=== PATIENT | female | born 1960 | race Caucasian/White ===

== ENCOUNTER 2019-04-10 08:27 | Day surgery (SDC) | payer OTHER ==
[~2019-04-10 08:27] MED LIST: ALPR.25; DIPH25; LACT10SY; LASIX; PENT400ER; POTASSIUM; PROCHLORPERAZINE; PROPRANOLOL; SPIRONOLACTONE; [UNRECOGNIZED DRUG - OTHER]
== END 2019-04-10 23:10 | disposition home or self-care (01) ==
LOC: MOI US 08:27
DX: N64.89 Other specified disorders of breast (principal)
CPT/HCPCS: 19083; 77065; 88305; A4648

== ENCOUNTER 2020-06-15 09:16 | Emergency (ER) | payer OTHER ==
[~2020-06-15] VITALS: Ht 170.2 cm; Wt 108.9 kg
[2020-06-15] MEDS ORDERED: Prinivil10 MG PO (09:31)
[2020-06-15] MEDS ORDERED: METO25ER PO (09:31)
[2020-06-15] MEDS ORDERED: HYDCHL25 PO (09:31)
[2020-06-15 10:16] LABS: BASOPHILS ABSOLUTE AUTO 0.04 K/mm3 (0.00-0.23); BASOPHILS PERCENT AUTO 1 % (0-2); EOSINOPHILS ABSOLUTE AUTO 0.02 K/mm3 (0.00-0.68); EOSINOPHILS PERCENT AUTO 1 % (0-6); Hematocrit 38.5 % (33.0-51.0); Hemoglobin 13.2 g/dL (11.5-16.0); IMMATURE GRAN ABSOLUTE AUTO 0.01 K/mm3 (0.00-0.10); IMMATURE GRAN PERCENT AUTO 0 % (0-1); LYMPHOCYTES ABSOLUTE AUTO 1.17 K/mm3 (0.84-5.20); LYMPHOCYTES PERCENT AUTO 31 % (21-46); MONOCYTES ABSOLUTE AUTO 0.37 K/mm3 (0.16-1.47); MONOCYTES PERCENT AUTO 10 % (4-13); Mean Corpuscular HGB 35.5 pg (26.0-34.0); Mean Corpuscular HGB Conc 34.3 g/dL (31.5-36.5); Mean Corpuscular Volume 104 fL (80-100); Mean Platelet Volume 10.1 fL (9.1-12.4); NEUTROPHILS ABSOLUTE AUTO 2.18 K/mm3 (1.96-9.15); NEUTROPHILS PERCENT AUTO 57 % (41-73); Platelet Count 168 K/mm3 (150-400); RDW Coefficient Variation 12.6 % (11.7-14.2); Red Blood Cell Count 3.72 M/mm3 (3.80-5.20); White Blood Cell Count 3.79 K/mm3 (4.00-11.30)
[2020-06-15 10:25] LABS: Alanine Aminotransfer (ALT/SGP 48 U/L (12-78); Albumin/Globulin Ratio 0.7 (0.8-1.8); Alk Phos 189 U/L (50-136); Anion Gap 9 mmol/L (6-16); Aspartate Aminotrans (AST/SGOT 42 U/L (12-37); Bilirubin, Total 1.6 mg/dL (0.1-1.0); Blood Urea Nitrogen 7 mg/dL (8-24); Bun/Creatinine Ratio 11.9 (12.0-20.0); CO2, Blood 24 mmol/L (21-32); Calcium, Blood 9.3 mg/dL (8.5-10.1); Chloride, Blood 99 mmol/L (98-108); Creatinine, Blood 0.59 mg/dL (0.40-1.00); Globulin, Blood 4.3 g/dL (2.2-4.0); Glomerular Filtration Rate >60 (60-); Glucose, Blood 103 mg/dL (70-99); Potassium, Blood 3.1 mmol/L (3.5-5.5); Sodium, Blood 132 mmol/L (136-145); Total Protein, Blood 7.3 g/dL (6.4-8.2)
[2020-06-15 10:59] LABS: Source, Urine Clean Catch
[2020-06-15 11:02] LABS: Appearance, Urine Clear (Clear); Bilirubin, Urine Neg (Neg); Blood, Urine Neg (Neg); Color, Urine Yellow (P-Yellow); Glucose Qualitative, Urine Neg (Neg); Ketones, Urine Neg (Neg); Leukocyte Esterase, Urine Neg (Neg); Nitrite, Urine Neg (Neg); Protein, Urine Neg (Neg); Specific Gravity, Urine 1.015 (1.003-1.022); Urobilinogen, Urine 1+ (Normal)
== END 2020-06-15 13:15 | disposition home or self-care (01) ==
LOC: ER 09:16
PROVIDERS: Physician Assistant
DX: K80.80 Other cholelithiasis without obstruction (principal); F17.200 Nicotine dependence, unspecified, uncomplicated; Z79.899 Other long term (current) drug therapy
CPT/HCPCS: 36415; 71046; 71260; 76705; 80053; 81003; 85025; 85379; 96374; 99284-25; J1885; Q9967

== ENCOUNTER 2022-05-11 10:06 | Inpatient (IN) | payer OTHER ==
[~2022-05-11] VITALS: Ht 167.6 cm; Wt 100.7 kg
[~2022-05-11 10:06] MED LIST changes: +HYDCHL25 PO; +METO25ER PO; +Prinivil10 MG PO
[2022-05-11 10:54] LABS: Source, Urine Clean Catch
[2022-05-11 11:02] LABS: Appearance, Urine Clear (Clear); Bilirubin, Urine Neg (Neg); Blood, Urine Neg (Neg); Color, Urine Yellow (P-Yellow); Glucose Qualitative, Urine Neg (Neg); Ketones, Urine Neg (Neg); Leukocyte Esterase, Urine Neg (Neg); Nitrite, Urine Neg (Neg); Protein, Urine Neg (Neg); Urobilinogen, Urine NORM (Normal)
[2022-05-11 11:19] LABS: Magnesium, Blood 1.7 mg/dL (1.6-2.4)
[2022-05-11 11:20] LABS: Albumin, Blood 3.1 g/dL (3.4-5.0); Albumin/Globulin Ratio 0.7 (0.8-1.8); Bilirubin, Total 2.5 mg/dL (0.1-1.0); Calcium, Blood 9.2 mg/dL (8.5-10.1); Creatinine, Blood 0.57 mg/dL (0.40-1.00); Globulin, Blood 4.3 g/dL (2.2-4.0); Potassium, Blood 3.1 mmol/L (3.5-5.5); Total Protein, Blood 7.4 g/dL (6.4-8.2)
[2022-05-11 12:08] LABS: BASOPHILS ABSOLUTE AUTO 0.05 K/mm3 (0.00-0.23); BASOPHILS PERCENT AUTO 1 % (0-2); EOSINOPHILS ABSOLUTE AUTO 0.04 K/mm3 (0.00-0.68); EOSINOPHILS PERCENT AUTO 1 % (0-6); Hematocrit 35.3 % (33.0-51.0); Hemoglobin 13.2 g/dL (11.5-16.0); IMMATURE GRAN ABSOLUTE AUTO 0.02 K/mm3 (0.00-0.10); IMMATURE GRAN PERCENT AUTO 0 % (0-1); LYMPHOCYTES ABSOLUTE AUTO 1.25 K/mm3 (0.84-5.20); LYMPHOCYTES PERCENT AUTO 23 % (21-46); MONOCYTES ABSOLUTE AUTO 0.48 K/mm3 (0.16-1.47); MONOCYTES PERCENT AUTO 9 % (4-13); Mean Corpuscular HGB 36.3 pg (26.0-34.0); Mean Corpuscular HGB Conc 37.4 g/dL (31.5-36.5); Mean Corpuscular Volume 97 fL (80-100); NEUTROPHILS PERCENT AUTO 66 % (41-73); RDW Coefficient Variation 12.9 % (11.7-14.2); RDW Standard Deviation 46.3 fL (35.1-46.3); Red Blood Cell Count 3.64 M/mm3 (3.80-5.20); White Blood Cell Count 5.44 K/mm3 (4.00-11.30)
[2022-05-11 12:14] LABS: International Normalized Ratio 1.11; Prothrombin Time Results 11.6 Sec (9.7-11.5)
[2022-05-11 12:27] LABS: Mean Platelet Volume 10.2 fL (9.1-12.4)
[2022-05-11 12:29] LABS: Platelet Count 146 K/mm3 (150-400)
[2022-05-11 17:24] LABS: Hematocrit 35.5 % (33.0-51.0); Hemoglobin 13.1 g/dL (11.5-16.0)
--- NOTE | 2022-05-11 17:56 | NUR ---
ASSUMPTION OF CARE/ SHIFT SUMMARY PT ARRIVED TO ICU FROM ER, TRANSFERRED TO ICU BED VIA SBA, PT STABLE ON HER FEET. ALERT AND ORIENTED, FOLLOWING COMMANDS. MILDLY ANXIOUS, ADMITS TO BASELINE ANXIETY THAT SHE USED TO TAKE XANAX FOR BUT NOW TREATS WITH ALCOHOL. PT DRINKS 4-8 LARGE BEERS A DAY, ADMITS TO HAVING 2 BEERS THIS MORNING, STATES "IT HELPS WITH MY NAUSEA". CIWA OF 8, MEDICATED PT WITH 25MG LIBRIUM. 150ML/HR OF NS INFUSING ALONG WITH MAGNESIUM. BP WNL. 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 PT AMBULATING WITHOUT DIFFICULTY TO BEDSIDE COMMODE. TOLERATING PO INTAKE. MAIN COMPLAINT FROM PT IS CRAMPING IN L FOOT AND MILD ANXIETY.
[2022-05-11 21:34] LABS: Bun/Creatinine Ratio 10.1 (12.0-20.0); Creatinine, Blood 0.79 mg/dL (0.40-1.00); Potassium, Blood 3.8 mmol/L (3.5-5.5)
--- NOTE | 2022-05-11 22:04 | NUR ---
ASSUMPTION OF CARE/ASSESSMENT: ASSUMED CARE OF PT AT 1930, REPORT RECIEVED FROM VANDANA DE LEON. PT IS A&O AND USES CALL LIGHT APPROPRIATELY. LUNG SOUNDS ARE CLEAR, SPO2 96<, RR 16-20 AND ON RA. 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 N/V SUBSIDED FROM EARLIER TODAY, AND PT HAS BEEN ABLE TO EAT/DRINK. HYPERACTIVE BS IN ALL QUADRANTS, AND NO C/O ABD PAIN. PT USING TOILET IN ROOM WITH SBA; URINE IS CAROL AND CLEAR. NS GTT @ 150 MLS. PT IS AMBULATING WITH SBA, GAIT IS STEADY. WILL CONTINUE TO MONITOR.
[2022-05-12 01:11] LABS: Hematocrit 31.7 % (33.0-51.0); Hemoglobin 11.7 g/dL (11.5-16.0); Mean Corpuscular HGB 36.4 pg (26.0-34.0); Mean Corpuscular HGB Conc 36.9 g/dL (31.5-36.5); Mean Corpuscular Volume 99 fL (80-100); Mean Platelet Volume 10.1 fL (9.1-12.4); Platelet Count 129 K/mm3 (150-400); RDW Standard Deviation 46.9 fL (35.1-46.3); Red Blood Cell Count 3.21 M/mm3 (3.80-5.20); White Blood Cell Count 5.24 K/mm3 (4.00-11.30)
[2022-05-12 01:31] LABS: Albumin, Blood 2.8 g/dL (3.4-5.0); Albumin/Globulin Ratio 0.8 (0.8-1.8); Bilirubin, Total 2.6 mg/dL (0.1-1.0); Bun/Creatinine Ratio 12.4 (12.0-20.0); Calcium, Blood 8.4 mg/dL (8.5-10.1); Creatinine, Blood 0.72 mg/dL (0.40-1.00); Globulin, Blood 3.5 g/dL (2.2-4.0); Magnesium, Blood 1.9 mg/dL (1.6-2.4); Potassium, Blood 3.5 mmol/L (3.5-5.5); Total Protein, Blood 6.3 g/dL (6.4-8.2)
--- NOTE | 2022-05-12 03:42 | NUR ---
ASSUMPTION OF CARE REPORT TAKED FROM CYNTHIA DE LEON. CARE OF PT ASSUMED BY MYSELF
--- NOTE | 2022-05-12 05:47 | NUR ---
SHIFT SUMMERY PT IS ALERT AND ORIENTED W/PERIODS OF AGITATION, ANXIETY (SEE CIWA). PT WAS MEDICATED APPROPRIATE PER MD ORDERS. HER VS HAVE BEEN WNL THROUGHOUT THE NIGHT. SHE IS ON ROOM AIR. SHE HAS BEEN UP TO THE BEDSIDE COMMODE AND TOLERATED ACTIVITY WELL. SHE HAS HAD NO ACUTE DISTRESS OVERNIGHT.
[2022-05-12 07:59] LABS: Bun/Creatinine Ratio 11.5 (12.0-20.0); Calcium, Blood 8.4 mg/dL (8.5-10.1); Creatinine, Blood 0.78 mg/dL (0.40-1.00); Potassium, Blood 3.4 mmol/L (3.5-5.5)
--- NOTE | 2022-05-12 10:11 | NUR ---
PT A/O X4 THIS AM. UP TO CHAIR INDEP, STEADY ON FEET. SEE CIWA DOCUMENTATION. STATUS CHANGED TO PCU. IVF STOPPED DUE TO SODIUM CORRECTING. NO SIGN OF DISTRESS.
--- NOTE | 2022-05-12 17:38 | NUR ---
SUMMARY PT A/O X4 TODAY. NO SIGNS OF WITHDRAWL. PT UP IN ROOM INDEP. SODIUM LEVEL STILL 125, MD WANTS IT AT LEAST 130 BEFORE SHE CAN GO HOME. EATING MEALS. CHANGED TO MEDICAL STATUS. NO SIGN OF DISTRESS.
--- NOTE | 2022-05-12 19:00 | NUR ---
ASSUMED CARE OF PT. SHE IS RESTING IN BED WITH CALL LIGHT NEAR, NO C/O PAIN, IS INDEPENDENT IN ROOM AND ALERT AND ORIENTED. SHE DOES HAVE SONIA ANXIETY. PLAN IS TO DC HOME TOMORROW IF SODIUM LEVEL IS >130. WILL CONTINUE TO MONITOR.
--- NOTE | 2022-05-12 23:55 | NUR ---
PT CALLED THIS RN INTO ROOM AND C/O PAIN TO IV SITE. NEW IV THAT WAS PLACED AN HOUR EARLIER HAD ALREADY INFILTRATED. PT STATED THAT SHE WAS HESITANT FOR US TO PLACE ANOTHER ONE. INFORMED DR. SALES. SEE ORDERS
[2022-05-13 06:04] LABS: BASOPHILS ABSOLUTE AUTO 0.04 K/mm3 (0.00-0.23); EOSINOPHILS ABSOLUTE AUTO 0.06 K/mm3 (0.00-0.68); IMMATURE GRAN ABSOLUTE AUTO 0.01 K/mm3 (0.00-0.10); LYMPHOCYTES ABSOLUTE AUTO 0.92 K/mm3 (0.84-5.20); LYMPHOCYTES PERCENT AUTO 24 % (21-46); MONOCYTES ABSOLUTE AUTO 0.34 K/mm3 (0.16-1.47); MONOCYTES PERCENT AUTO 9 % (4-13); NEUTROPHILS ABSOLUTE AUTO 2.45 K/mm3 (1.96-9.15); NEUTROPHILS PERCENT AUTO 64 % (41-73)
[2022-05-13 06:06] LABS: BASOPHILS PERCENT AUTO 1 % (0-2); EOSINOPHILS PERCENT AUTO 2 % (0-6); Hematocrit 29.8 % (33.0-51.0); Hemoglobin 10.7 g/dL (11.5-16.0); IMMATURE GRAN PERCENT AUTO 0 % (0-1); Mean Corpuscular HGB 37.3 pg (26.0-34.0); Mean Corpuscular HGB Conc 35.9 g/dL (31.5-36.5); Mean Platelet Volume 10.6 fL (9.1-12.4); Platelet Count 105 K/mm3 (150-400); RDW Coefficient Variation 13.8 % (11.7-14.2); RDW Standard Deviation 52.7 fL (35.1-46.3); Red Blood Cell Count 2.87 M/mm3 (3.80-5.20); White Blood Cell Count 3.64 K/mm3 (4.00-11.30)
[2022-05-13 06:07] LABS: Mean Corpuscular Volume 104 fL (80-100)
[2022-05-13 06:14] LABS: Bun/Creatinine Ratio 15.3 (12.0-20.0); Calcium, Blood 8.6 mg/dL (8.5-10.1); Creatinine, Blood 0.72 mg/dL (0.40-1.00); Potassium, Blood 3.8 mmol/L (3.5-5.5)
--- NOTE | 2022-05-13 06:21 | NUR ---
Shift summary: Pt is A&OX4, independent in room. Earlier in the night 2 IV's had infiltrated when NS was infusing at 150ml/hr. A new IV was then placed in her forearm using the U/S and about an hour later that IV infiltrated as well. Her RAJESH is swollen and her RFA/RAC is swollen as well. Per pt she was told that she would be going home today and would not like another IV if this keeps happening because she doesn't want to be swollen at home. Informed MD and salt tablets were added. Despite this issue, pt had an uneventful night and really wanting to go home today.
--- NOTE | 2022-05-13 11:32 | NUR ---
DISCHARGED HOME AT 1045 ASSUMED CARE OF PT AT 0715. SHE IS A/O X4, AFIB (BASELINE), BP WNL. NA 133, BEING CHECKED EVERY 2 HOURS. ATE 100% BREAKFAST, NO N/V. VOIDS IN BSC, IS AMBULATING IN ROOM INDEPENDENTLY. NO IV ACCESS (3 IV'S INFILTRATED ON LAST SHIFT). PT IS EAGER TO GO HOME. DISCUSSED WITH DR. DEL ROSARIO AND D/C ORDERS RECIEVED. REVIEWED D/C INSTRUCTIONS WITH PT INCLUDING DIETARY SODIUM INTAKE AND FLUID RESTRICTION UNTIL F/U WITH [facility] PROVID[facility]. PT AGREES TO CALL TO SCHEDULE APPOINTMENT WITHIN 5 DAYS. PT REQUESTS TO BE WHEELED OUT TO [facility] TO AWAIT HER RIDE HOME. PT TRANSPORTED OUT BY PCT VIA W/C AT 1045. RESIDENT BUYER NOTIFIED OF D/C.
== END 2022-05-13 10:45 | disposition home or self-care (01) | DRG 897 ==
LOC: ER 10:06 → ERHOLD 14:20 → ICUE 14:20
PROVIDERS: Emergency Medicine; Family Medicine; Nurse Practitioner Acute Care; Physician Assistant; Student in an Organized Health Care Education/Training Program; ADMIT Internal Medicine
DX: F10.239 Alcohol dependence with withdrawal, unspecified (principal); E87.1 Hypo-osmolality and hyponatremia; D61.818 Other pancytopenia; I85.10 Secondary esophageal varices without bleeding; E87.6 Hypokalemia; K70.30 Alcoholic cirrhosis of liver without ascites; I10 Essential (primary) hypertension; F41.9 Anxiety disorder, unspecified; K80.20 Calculus of gallbladder without cholecystitis without obstruction; N20.0 Calculus of kidney; T50.2X5A Adverse effect of carbonic-anhydrase inhibitors, benzothiadiazides and other diuretics, initial encounter; E86.1 Hypovolemia; F12.10 Cannabis abuse, uncomplicated; F17.210 Nicotine dependence, cigarettes, uncomplicated; Z96.89 Presence of other specified functional implants; Z79.899 Other long term (current) drug therapy; Z98.890 Other specified postprocedural states; Z79.811 Long term (current) use of aromatase inhibitors
CPT/HCPCS: 36415; 76705; 80048; 80053; 81003; 82140; 82533; 83690; 83735; 83880; 83930; 83935; 84132; 84295; 84300; 84443; 85014; 85018; 85025; 85027; 85610; 86850; 86870; 86900; 86901; 86905; 93005; 93010; 96374; 96375; 99285-25; A9270; C9113; G0480; J1644; J2405; J3475; J3480; J7030

== ENCOUNTER 2022-08-17 17:45 | Emergency (ER) | payer OTHER ==
[~2022-08-17] VITALS: Ht 170.2 cm; Wt 102.5 kg
[2022-08-17] MEDS ORDERED: PRADAXA PO (19:24)
[2022-08-17] MEDS ORDERED: BUSP10 PO (19:24)
[2022-08-17] MEDS ORDERED: Ativan1 MG PO (21:41)
[2022-08-17 22:29] LABS: BASOPHILS ABSOLUTE AUTO 0.05 K/mm3 (0.00-0.23); BASOPHILS PERCENT AUTO 1 % (0-2); EOSINOPHILS ABSOLUTE AUTO 0.03 K/mm3 (0.00-0.68); EOSINOPHILS PERCENT AUTO 1 % (0-6); Hematocrit 39.1 % (33.0-51.0); Hemoglobin 13.6 g/dL (11.5-16.0); IMMATURE GRAN ABSOLUTE AUTO 0.01 K/mm3 (0.00-0.10); IMMATURE GRAN PERCENT AUTO 0 % (0-1); LYMPHOCYTES ABSOLUTE AUTO 1.61 K/mm3 (0.84-5.20); LYMPHOCYTES PERCENT AUTO 28 % (21-46); MONOCYTES ABSOLUTE AUTO 0.42 K/mm3 (0.16-1.47); MONOCYTES PERCENT AUTO 7 % (4-13); Mean Corpuscular HGB Conc 34.8 g/dL (31.5-36.5); Mean Corpuscular Volume 98 fL (80-100); Mean Platelet Volume 10.9 fL (9.1-12.4); NEUTROPHILS ABSOLUTE AUTO 3.56 K/mm3 (1.96-9.15); NEUTROPHILS PERCENT AUTO 63 % (41-73); Platelet Count 124 K/mm3 (150-400); RDW Coefficient Variation 14.6 % (11.7-14.2); RDW Standard Deviation 52.9 fL (35.1-46.3); White Blood Cell Count 5.68 K/mm3 (4.00-11.30)
[2022-08-17 22:30] LABS: Albumin, Blood 3.2 g/dL (3.4-5.0); Albumin/Globulin Ratio 0.8 (0.8-1.8); Bilirubin, Total 2.1 mg/dL (0.1-1.0); Bun/Creatinine Ratio 10.3 (12.0-20.0); Calcium, Blood 8.9 mg/dL (8.5-10.1); Creatinine, Blood 0.68 mg/dL (0.40-1.00); Globulin, Blood 3.9 g/dL (2.2-4.0); Potassium, Blood 3.4 mmol/L (3.5-5.5); Total Protein, Blood 7.1 g/dL (6.4-8.2)
== END 2022-08-17 21:50 | disposition home or self-care (01) ==
LOC: ER 17:45
PROVIDERS: Student in an Organized Health Care Education/Training Program
DX: F41.9 Anxiety disorder, unspecified (principal); F10.939 Alcohol use, unspecified with withdrawal, unspecified; I48.91 Unspecified atrial fibrillation; I10 Essential (primary) hypertension; F17.200 Nicotine dependence, unspecified, uncomplicated; Z79.899 Other long term (current) drug therapy
CPT/HCPCS: 71046; 80053; 84484; 85025; 93005; 93010; 96374; 99285-25

== ENCOUNTER 2022-10-06 14:15 | Emergency (ER) | payer OTHER ==
[~2022-10-06] VITALS: Ht 167.6 cm; Wt 101.2 kg
[~2022-10-06 14:15] MED LIST changes: +Ativan1 MG PO; +BUSP10 PO; +DABI150C PO
[2022-10-06] MEDS ORDERED: C COMPLEX1000 M1 PO (14:28)
[2022-10-06] MEDS ORDERED: HYDCHL12.5 PO (14:29)
[2022-10-06 15:02] LABS: BASOPHILS ABSOLUTE AUTO 0.07 K/mm3 (0.00-0.23); BASOPHILS PERCENT AUTO 1 % (0-2); EOSINOPHILS ABSOLUTE AUTO 0.04 K/mm3 (0.00-0.68); EOSINOPHILS PERCENT AUTO 1 % (0-6); Hematocrit 38.7 % (33.0-51.0); Hemoglobin 13.3 g/dL (11.5-16.0); IMMATURE GRAN ABSOLUTE AUTO 0.02 K/mm3 (0.00-0.10); IMMATURE GRAN PERCENT AUTO 0 % (0-1); LYMPHOCYTES ABSOLUTE AUTO 1.56 K/mm3 (0.84-5.20); LYMPHOCYTES PERCENT AUTO 26 % (21-46); MONOCYTES ABSOLUTE AUTO 0.51 K/mm3 (0.16-1.47); MONOCYTES PERCENT AUTO 9 % (4-13); Mean Corpuscular HGB 33.4 pg (26.0-34.0); Mean Corpuscular HGB Conc 34.4 g/dL (31.5-36.5); Mean Corpuscular Volume 97 fL (80-100); NEUTROPHILS PERCENT AUTO 63 % (41-73); Platelet Count 128 K/mm3 (150-400); RDW Coefficient Variation 13.4 % (11.7-14.2); RDW Standard Deviation 47.9 fL (35.1-46.3); Red Blood Cell Count 3.98 M/mm3 (3.80-5.20)
[2022-10-06 15:22] LABS: Albumin, Blood 3.1 g/dL (3.4-5.0); Albumin/Globulin Ratio 0.8 (0.8-1.8); Bun/Creatinine Ratio 14.1 (12.0-20.0); Calcium, Blood 8.9 mg/dL (8.5-10.1); Creatinine, Blood 0.78 mg/dL (0.40-1.00); Globulin, Blood 3.9 g/dL (2.2-4.0); Potassium, Blood 3.4 mmol/L (3.5-5.5)
[2022-10-06 16:30] VITALS: BP 142/97
== END 2022-10-06 16:39 | disposition home or self-care (01) ==
LOC: ER 14:15
PROVIDERS: Emergency Medicine
DX: I48.91 Unspecified atrial fibrillation (principal); S83.91XA Sprain of unspecified site of right knee, initial encounter; I10 Essential (primary) hypertension; F17.200 Nicotine dependence, unspecified, uncomplicated; X58.XXXA Exposure to other specified factors, initial encounter
CPT/HCPCS: 73562-RT; 80053; 84484; 85025; 93005; 93010; A9270

== ENCOUNTER 2024-10-16 19:02 | Observation (INO) | payer OTHER ==
[~2024-10-16] VITALS: Ht 167.6 cm; Wt 105.0 kg
[~2024-10-16 19:02] MED LIST changes: +C COMPLEX1000 M1 PO; +HYDCHL12.5 PO; +Toprol Xl25 MG PO
[2024-10-16 20:04] LABS: BASOPHILS ABSOLUTE AUTO 0.04 K/mm3 (0.00-0.23); BASOPHILS PERCENT AUTO 1 % (0-2); EOSINOPHILS ABSOLUTE AUTO 0.02 K/mm3 (0.00-0.68); EOSINOPHILS PERCENT AUTO 0 % (0-6); Hematocrit 36.7 % (33.0-51.0); Hemoglobin 13.2 g/dL (11.5-16.0); IMMATURE GRAN ABSOLUTE AUTO 0.01 K/mm3 (0.00-0.10); IMMATURE GRAN PERCENT AUTO 0 % (0-1); LYMPHOCYTES ABSOLUTE AUTO 1.31 K/mm3 (0.84-5.20); LYMPHOCYTES PERCENT AUTO 22 % (21-46); MONOCYTES ABSOLUTE AUTO 0.51 K/mm3 (0.16-1.47); MONOCYTES PERCENT AUTO 8 % (4-13); Mean Corpuscular HGB 33.1 pg (26.0-34.0); Mean Corpuscular Volume 92 fL (80-100); Mean Platelet Volume 9.9 fL (9.1-12.4); NEUTROPHILS ABSOLUTE AUTO 4.15 K/mm3 (1.96-9.15); NEUTROPHILS PERCENT AUTO 69 % (41-73); Platelet Count 164 K/mm3 (150-400); RDW Coefficient Variation 15.4 % (11.7-14.2); RDW Standard Deviation 51.4 fL (35.1-46.3); Red Blood Cell Count 3.99 M/mm3 (3.80-5.20); White Blood Cell Count 6.04 K/mm3 (4.00-11.30)
[2024-10-16] MEDS ORDERED: NS 1,000 ML IV SCH ×2 (20:30→21:20)
[2024-10-16 20:32] LABS: Source, Urine Clean Catch
[2024-10-16 20:35] LABS: Albumin, Blood 3.2 g/dL (3.4-5.0); Albumin/Globulin Ratio 0.8 (0.8-1.8); Bilirubin, Total 1.4 mg/dL (0.1-1.0); Bun/Creatinine Ratio 7.2 (12.0-20.0); Creatinine, Blood 0.55 mg/dL (0.40-1.00); Globulin, Blood 4.1 g/dL (2.2-4.0); Magnesium, Blood 1.8 mg/dL (1.6-2.4); Thyroid Stimulating Hormone 2.33 uIU/mL (0.360-4.800); Total Protein, Blood 7.3 g/dL (6.4-8.2)
[2024-10-16 20:45] LABS: Appearance, Urine Clear (Clear); Bilirubin, Urine Neg (Neg); Blood, Urine 1+ (Neg); Color, Urine Yellow (P-Yellow); Glucose Qualitative, Urine Neg (Neg); Ketones, Urine Neg (Neg); Leukocyte Esterase, Urine Neg (Neg); Nitrite, Urine Neg (Neg); Protein, Urine Neg (Neg); Urobilinogen, Urine NORM (Normal)
[2024-10-16 20:52] LABS: Bacteria Few /hpf; Red Blood Cells, Urine 0-2 /hpf (0-2); Squamous Epithelial Cells Mod /hpf (Few); White Blood Cells, Urine 0-2 /hpf (0-5)
[2024-10-16] MEDS ORDERED: Ibuprofen 600 MG Tab PO ONE (21:10)
[2024-10-16] MEDS ORDERED: LORazepam 2 MG/ML 1ML Injection IV PRN (21:20)
[2024-10-16] MEDS ORDERED: Ondansetron HCl 2 MG / ML 2ML Vial IV PRN (21:20)
[2024-10-16] MEDS ORDERED: ChlordiazePOXIDE 25 MG Cap PO PRN (21:20)
[2024-10-16 21:27] LABS: U Benzodiazapine Screen DETECTED
[2024-10-16 21:28] LABS: U Amphetamine Screen Not Detected; U Barbituate Screen Not Detected; U Buprenorphine Screen Not Detected; U Cannabinoids Screen Not Detected; U Cocaine Screen Not Detected; U Methadone Screen Not Detected; U Methamphetamine Screen Not Detected; U Opiates Screen Not Detected; U Oxycodone Screen Not Detected; U Phencyclidine Screen Not Detected
[2024-10-16] MEDS ORDERED: LORazepam 1 MG Tab PO PRN (21:30)
[2024-10-16 21:33] LABS: Free Thyroxine 1.12 ng/dL (0.70-1.60)
[2024-10-16 21:50] LABS: International Normalized Ratio 1.14; Prothrombin Time Results 12.4 Sec (9.7-11.5)
[2024-10-16] MEDS ORDERED: Enoxaparin 40 MG/0.4 ML SYR SC SCH (22:00)
--- NOTE | 2024-10-16 22:09 | NUR ---
REVIEWED INFORMATION TO HELP WITH CURRENT ADMISSION
[2024-10-16 22:49] VITALS: BP 147/95
[2024-10-16] MEDS ORDERED: Ativan1 MG PO (22:51)
[2024-10-16] MEDS ORDERED: MAGNESIUM OXID500 MG PO (22:52)
[2024-10-16] MEDS ORDERED: METO25ER PO (22:53)
[2024-10-16] MEDS ORDERED: POTCHL20ER PO (22:54)
[2024-10-17] MEDS ORDERED: LORazepam 1 MG Tab PO PRN (01:25)
--- NOTE | 2024-10-17 04:38 | NUR ---
SHIFT SUMMARY; AFTER ADMISSON, NEEDED TO CALL HOSPITALIST FOR ATIVAN ORDER, SHE NORMALLY TAKES. OF THIS ENTRY, SHE IS STILL SLEEPING. TELE A FLUT.@ 78. WAS UP TO BR WITH JUST SBA. DENIES DIZZINESS OR CP AT THAT TIME.
[2024-10-17 04:55] VITALS: BP 129/75
[2024-10-17 05:23] LABS: BASOPHILS ABSOLUTE AUTO 0.05 K/mm3 (0.00-0.23); BASOPHILS PERCENT AUTO 1 % (0-2); EOSINOPHILS ABSOLUTE AUTO 0.04 K/mm3 (0.00-0.68); EOSINOPHILS PERCENT AUTO 1 % (0-6); Hematocrit 35.1 % (33.0-51.0); Hemoglobin 12.1 g/dL (11.5-16.0); IMMATURE GRAN PERCENT AUTO 0 % (0-1); LYMPHOCYTES ABSOLUTE AUTO 1.23 K/mm3 (0.84-5.20); LYMPHOCYTES PERCENT AUTO 25 % (21-46); MONOCYTES ABSOLUTE AUTO 0.57 K/mm3 (0.16-1.47); MONOCYTES PERCENT AUTO 12 % (4-13); Mean Corpuscular HGB 33.3 pg (26.0-34.0); Mean Corpuscular HGB Conc 34.5 g/dL (31.5-36.5); Mean Corpuscular Volume 97 fL (80-100); Mean Platelet Volume 10.8 fL (9.1-12.4); NEUTROPHILS ABSOLUTE AUTO 2.98 K/mm3 (1.96-9.15); NEUTROPHILS PERCENT AUTO 61 % (41-73); Platelet Count 149 K/mm3 (150-400); RDW Coefficient Variation 15.9 % (11.7-14.2); RDW Standard Deviation 55.4 fL (35.1-46.3); Red Blood Cell Count 3.63 M/mm3 (3.80-5.20); White Blood Cell Count 4.87 K/mm3 (4.00-11.30)
[2024-10-17 06:08] LABS: Albumin, Blood 2.8 g/dL (3.4-5.0); Albumin/Globulin Ratio 0.8 (0.8-1.8); Bilirubin, Total 1.5 mg/dL (0.1-1.0); Calcium, Blood 8.3 mg/dL (8.5-10.1); Creatinine, Blood 0.72 mg/dL (0.40-1.00); Globulin, Blood 3.5 g/dL (2.2-4.0); Total Protein, Blood 6.3 g/dL (6.4-8.2)
[2024-10-17 07:15] VITALS: BP 139/83
[2024-10-17] MEDS ORDERED: Dabigatran Etexilate Mesylate 150 MG CAPSULE PO SCH (09:00)
[2024-10-17] MEDS ORDERED: Metoprolol Succinate 25 MG TABCR PO SCH (09:00)
[2024-10-17] MEDS ORDERED: Lisinopril 10 MG Tab PO SCH (09:00)
[2024-10-17] MEDS ORDERED: Potassium Chloride 20 MEQ TabCR PO SCH (09:00)
[2024-10-17] MEDS ORDERED: UREA 15 GM POWD.PACK PO SCH (09:00)
[2024-10-17] MEDS ORDERED: Acetaminophen 325 MG TABLET PO PRN (09:05)
[2024-10-17 11:22] VITALS: BP 127/84
[2024-10-17] MEDS ORDERED: URE-NA PO (11:41)
[2024-10-17] MEDS ORDERED: B-1100 M1 PO (13:56)
[2024-10-17] MEDS ORDERED: MULVITA PO (13:57)
--- NOTE | 2024-10-17 14:16 | NUR ---
DISCHARGE PT DISCHARGED AFTER GOING OVER NEW MEDS, MED CHANGES, FOLLOW UP APPOINTMENTS, AND OTHER INSTRUCTIONS. PT STATES SHE HAS NO FURTHER QUESTIONS AT THIS TIME. IV REMOVED & INTACT. PT WHEELED OUT BY FAMILY. PT SENT WITH EDUCATION ON FURTHER TREATMENT FOR ALCOHOL DEPENDENCY. PT EAGER TO FOLLOW UP WITH TREATMENT OPTIONS.
== END 2024-10-17 14:37 | disposition home or self-care (01) ==
LOC: ER 19:02 → MEDS 19:03
PROVIDERS: Student in an Organized Health Care Education/Training Program; ADMIT Internal Medicine
DX: E87.1 Hypo-osmolality and hyponatremia (principal); F10.20 Alcohol dependence, uncomplicated; I48.91 Unspecified atrial fibrillation; I10 Essential (primary) hypertension; K74.60 Unspecified cirrhosis of liver; F17.210 Nicotine dependence, cigarettes, uncomplicated; Z79.899 Other long term (current) drug therapy; Z88.8 Allergy status to other drugs, medicaments and biological substances
CPT/HCPCS: 36415; 80053; 80320; 81001; 83735; 83880; 84439; 84443; 85025; 85610; 93005; 93010; 96361; 96372; 96374; 99284-25; A9270; G0378; J1650; J2405; J7030